=== PATIENT | male | born 1990 | race Two or more races ===

== ENCOUNTER 2019-12-16 12:01 | Emergency (ER) | payer MEDICAID ==
[~2019-12-16] VITALS: Ht 177.8 cm; Wt 93.4 kg
[2019-12-16 12:25] VITALS: Ht 177.8 cm; Wt 93.4 kg
[2019-12-16 13:20] VITALS: BP 128/78
== END 2019-12-16 13:20 | disposition home or self-care (01) ==
LOC: ED 12:01
DX: K61.1 Rectal abscess (principal)
CPT/HCPCS: J0696; J1885